=== PATIENT | male | born 1965 | race Caucasian/White ===

== ENCOUNTER 2017-12-17 08:42 | Emergency (ER) | payer OTHER ==
[2017-12-17] MEDS: ONDANSETRON (ODT) 4 MG TAB ODT (09:56)
== END 2017-12-17 11:12 | disposition home or self-care (01) ==
LOC: FTE 08:42
DX: R11.10 Vomiting, unspecified (principal); I10 Essential (primary) hypertension; F17.210 Nicotine dependence, cigarettes, uncomplicated
CPT/HCPCS: 99283; Z7502

== ENCOUNTER 2018-06-25 15:43 | Emergency (ER) | payer OTHER ==
[2018-06-25 16:19] LABS: ADD MAN DIFF? NO
[2018-06-25] MEDS: SOD CHLORIDE 0.9% 500 ML IV (16:19)
[2018-06-25] MEDS: LORAZEPAM 1 MG TAB PO (16:19)
[2018-06-25 16:22] LABS: BASOPHILS % 0.6 % (0.0-2.0); EOSINOPHILS % 0.3 % (0.0-7.0); HEMATOCRIT 42.6 % (42.0-52.0); HEMOGLOBIN 14.5 g/dl (14.0-18.0); LYMPHOCYTES # 1.4 10^3/ul (0.8-2.9); LYMPHOCYTES % 19.6 % (15.0-51.0); MEAN CORPUSCULAR HEMOGLOBIN 31.2 pg (29.0-33.0); MEAN CORPUSCULAR VOLUME 91.6 fl (82.0-101.0); MEAN PLATELET VOLUME 9.3 fl (7.4-10.4); MONOCYTE # 0.8 10^3/ul (0.3-0.9); MONOCYTES % 10.7 % (0.0-11.0); NEUTROPHILS % 68.4 % (39.0-77.0); PLATELET COUNT 226 10^3/UL (140-415); RED BLOOD COUNT 4.65 10^6/ul (4.70-6.10); RED CELL DISTRIBUTION WIDTH 14.8 % (11.5-14.5)
[2018-06-25 16:22] LABS: WHITE BLOOD COUNT 7.3 10^3/ul (4.8-10.8)
[2018-06-25 16:38] LABS: ANION GAP 13 (8-16); BLOOD UREA NITROGEN 15 mg/dl (7-20); CALCIUM 9.6 mg/dl (8.4-10.2); CARBON DIOXIDE 26 mmol/L (21-31); CHLORIDE 104 mmol/L (97-110); CREATININE 0.95 mg/dl (0.61-1.24); GLUCOSE 174 mg/dl (70-220); SODIUM 139 mmol/L (135-144)
== END 2018-06-25 18:07 | disposition home or self-care (01) ==
LOC: E/R 15:43
DX: F41.9 Anxiety disorder, unspecified (principal); I10 Essential (primary) hypertension; E11.9 Type 2 diabetes mellitus without complications; F17.210 Nicotine dependence, cigarettes, uncomplicated; G40.909 Epilepsy, unspecified, not intractable, without status epilepticus
CPT/HCPCS: 36415; 80048; 85025; 96360; 99284-25

== ENCOUNTER 2018-11-10 17:41 | Emergency (ER) | payer OTHER ==
[2018-11-10] MEDS: MECLIZINE 12.5 MG TAB PO (20:00)
== END 2018-11-10 23:04 | disposition home or self-care (01) ==
LOC: E/R 17:41
DX: R42 Dizziness and giddiness (principal); E11.9 Type 2 diabetes mellitus without complications; I10 Essential (primary) hypertension; F17.210 Nicotine dependence, cigarettes, uncomplicated
CPT/HCPCS: 70450; 93005; 99284-25